=== PATIENT | male | born 1970 | race Two or more races ===

== ENCOUNTER → 2019-11-15 | Outpatient (CLI) | payer OTHER ==
--- NOTE | 2019-11-15 09:44 | US ---
EXAMINATION TYPE: US carotid duplex BILAT DATE OF EXAM: 11/15/2019 COMPARISON: NONE CLINICAL HISTORY: G45.9 TRANSIENT CEREBRAL ISCHEMIC ATTACK. EXAM MEASUREMENTS: RIGHT: Peak Systolic Velocity (PSV) cm/sec ----- Right CCA: 94. ----- Right ICA: 78. ----- Right ECA: 88. ICA/CCA ratio: 0.82 RIGHT: End Diastole cm/sec ----- Right CCA: 28. ----- Right ICA: 29. ----- Right ECA: 19 LEFT: Peak Systolic Velocity (PSV) cm/sec ----- Left CCA: 96. ----- Left ICA: 70. ----- Left ECA: 100. ICA/CCA ratio: 0.72 LEFT: End Diastole cm/sec ----- Left CCA: 25. ----- Left ICA: 26. ----- Left ECA: 33. VERTEBRALS (direction of flow): Right Vertebral: Antegrade Left Vertebral: Antegrade Rhythm: Normal Incidental finding of right thyroid nodule measuring 2.2cm Minimal plaque, no significant velocity elevations. IMPRESSION: 1. No significant flow-limiting stenosis carotid bifurcations. 2. Incidental note is made of a thyroid nodule measuring 2.2 cm. Consider complete workup with thyroi d ultrasound. Criteria for Assigning % of Stenosis / Diameter reduction (Estimation based on the indirect measurements of the internal carotid artery velocities (ICA PSV). 1. Normal (no stenosis)=ICA PSV < 125 cm/s: ratio < 2.0: ICA EDV<40 cm/s. 2. Less than 50% stenosis=ICA PSV < 125 cm/s: ratio < 2.0: ICA EDV<40 cm/s. 3. 50 to 69% stenosis=ICA PSV of 125 to 230 cm/s: ration 2.0 ? 4.0: ICA EDV 40-100 cm/s. 4. Greater than 70% stenosis to near occlusion= ICA PSV > 230 cm/s: ratio > 4.0: ICA EDV > 100 cm/s. 5. Near occlusion= ICA PSV velocities may be low or undetectable: variable ratio and ICA EDV. 6. Total occlusion=unable to detect flow.
== END | disposition home or self-care (01) ==
LOC: RADUSWWP 08:21
PROVIDERS: ATTEND Family Medicine
DX: G45.9 Transient cerebral ischemic attack, unspecified (principal)
CPT/HCPCS: 93880

== ENCOUNTER → 2019-12-06 | Outpatient (CLI) | payer OTHER ==
--- NOTE | 2019-12-06 09:57 | US ---
EXAMINATION TYPE: US thyroid st tissue head/neck DATE OF EXAM: 12/06/2019 COMPARISON: NONE CLINICAL HISTORY: E04.1 SINGLE THYROID NODULE. Thyroid nodule GLAND SIZE: Right Lobe: 5.1 x 2.8 x 3.3 cm Overall Parenchyma: homogenous Left Lobe: 5.1 x 1.4 x 1.8 cm Overall Parenchyma: homogeneous Isthmus Thickness: 0.5 cm NODULES RIGHT: # of nodules measured on right: 1 1. 3.3 X 2.3 x 2.5 cm solid nodule at the mid pole with well-defined margins; . This nodule is wid er than tall and shows intranodular vascularity. Prior size: no prior LEFT: # of nodules measured on left: 0 ISTHMUS: # of nodules measured in the isthmus: 0 Bilateral neck scanned, normal appearing lymph node right neck IMPRESSION: Thyromegaly with a large 3.3 cm right dominant thyroid nodule.
== END | disposition home or self-care (01) ==
LOC: RADUSWWP 09:32
PROVIDERS: ATTEND Family Medicine
DX: E01.0 Iodine-deficiency related diffuse (endemic) goiter (principal)
CPT/HCPCS: 76536